=== PATIENT | female | born 1990 | race Two or more races ===

== ENCOUNTER 2017-09-19 20:09 | Emergency (ER) | payer SELFPAY ==
[2017-09-19 20:22] VITALS: BMI 20.7
[2017-09-19 20:27] VITALS: BP 130/75; PULSE 73; RESP 16; TEMP 97.5; O2SAT 100
--- NOTE | 2017-09-19 20:47 | ED PDOC ---
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 Patient reports that she ate some cheese at a local cheese shop and developed a sense of swelling to the inside of her mouth, as well as developed a sense of anxiety, prompting her to come to the ED rater than take bendryl at home. Upon arrival in ED, patient's symptoms resolved. She denies experiencing any associated shortness of breath, rash, itchiness, tongue or lip swelling. Past Medical History Reviewed: Historical Data, Nursing Documentation, Vital Signs Vital Signs: Last Vital Signs Temp 97.5 F L 09/19/17 20:23 Pulse 73 09/19/17 20:23 Resp 16 09/19/17 20:23 BP 130/75 09/19/17 20:23 Pulse Ox 100 09/19/17 20:23 - Medical History Other PMH: Allergy to ham - Family History Family History: States: Unknown Family Hx - Allergies Allergies/Adverse Reactions: Allergies Allergy/AdvReac Type Severity Reaction Status Date / Time No Known Allergies Allergy Verified 09/19/17 20:22 Review of Systems ENT: Positive for: Mouth Swelling ("inside of mouth" swelling, resolved once in ED). Negative for: Other (denies tongue or lip swelling) Respiratory: Negative for: Shortness of Breath Skin: Negative for: Rash, Other (denies itchiness) Psych: Positive for: Anxiety Physical Exam - Reviewed Nursing Documentation Reviewed: Yes Vital Signs Reviewed: Yes - Physical Exam Appears: Positive for: Non-toxic, No Acute Distress Head Exam: Positive for: ATRAUMATIC, NORMOCEPHALIC Skin: Positive for: Normal Color, Warm, Dry Eye Exam: Positive for: EOMI, Normal appearance, PERRL ENT: Positive for: Normal ENT Inspection. Negative for: Other (No mouth swelling) Neck: Positive for: Normal, Painless ROM, Supple Cardiovascular/Chest: Positive for: Regular Rate, Rhythm. Negative for: Murmur Respiratory: Positive for: Normal Breath Sounds. Negative for: Wheezing Gastrointestinal/Abdominal: Positive for: Normal Exam, Soft. Negative for: Tenderness Back: Positive for: Normal Inspection. Negative for: L CVA Tenderness, R CVA Tenderness Neurologic/Psych: Positive for: Alert, Oriented. Negative for: Motor/Sensory Deficits - ECG O2 Sat by Pulse Oximetry: 100 (RA) Pulse Ox Interpretation: Normal Disposition - Clinical Impression Clinical Impression: Allergic reaction - Patient ED Disposition Is Patient to be Admitted: No - Disposition Disposition: Routine/Home Disposition Time: 20:30 Condition: STABLE Instructions: General Allergic Reaction (ED) Forms: [employer] ([place]) Medical Decision Making Medical Decision Making: Impression: 27 y/o female with mild allergic reaction Plan: * Ordered Benadryl but patient refused to take it, stated that she will take Benadryl at home. Patient offers no further complaints and is stable for discharge home. Scribe Attestation: Documented by Juana Landaverde, acting as a scribe for Michael Stubbs MD. Provider Scribe Attestation: All medical record entries made by the Scribe were at my direction and personally dictated by me. I have reviewed the chart and agree that the record accurately reflects my personal performance of the history, physical exam, medical decision making, and the department course for this patient. I have also personally directed, reviewed, and agree with the discharge instructions and disposition.
== END 2017-09-19 20:30 | disposition home or self-care (01) ==
LOC: H.ER 20:09
DX: T78.40XA Allergy, unspecified, initial encounter (principal)